=== PATIENT | female | born 1960 | race Caucasian/White ===

== ENCOUNTER 2018-09-13 06:50 | Day surgery (SDC) | payer BC ==
[~2018-09-13 06:50] MED LIST: Acetaminophen TAB* 325 MG PO PRN; Buffered Lidocaine 0.9% SYRIN* 5 ML/SYR SYRINGE INTRADERM ONE
[2018-09-13] MEDS ORDERED: Midazolam* 1 MG/ML 2 ML VIAL (2 MG) ONE (07:18)
[2018-09-13] MEDS ORDERED: fentaNYL* 50 MCG/ML 2 ML VIAL (100 MCG VIAL) ONE (07:18)
[2018-09-13] MEDS ORDERED: Lidocaine 2% EPI 1:200000 MPF*10-20 ML VIAL ONE (08:39)
[2018-09-13] MEDS ORDERED: Neomycin/Polymy/Dex OPTH.SUSP* MAXITROL 0.1% 5 ML ONE (08:39)
[2018-09-13] MEDS ORDERED: Cyclopentolate 1% OPTH.SOL* 2 ML BTL ONE (08:39)
[2018-09-13] MEDS ORDERED: Povidone Iodine 5% OPTH* 30 ML BTL ONE (08:39)
[2018-09-13] MEDS ORDERED: Lidocaine 1%* 5 ML VIAL ONE (08:39)
[2018-09-13] MEDS ORDERED: acetaZOLAMIDE TAB* 250 MG ONE (08:39)
[2018-09-13] MEDS ORDERED: Proparacaine 0.5% OPHTH.SOL* 15 ML BTL ONE (08:39)
[2018-09-13] MEDS ORDERED: Ketorolac 0.5% OPHTH (NF) 0.5 % 5 ML BTL ONE (08:39)
[2018-09-13 09:16] VITALS: BP 107/68
--- NOTE | 2018-09-13 15:56 | OP ---
OPERATIVE NOTE: DATE OF OPERATION: 09/13/18 DATE OF : 56 SURGEON: Hi Machuca MD PREOPERATIVE DIAGNOSIS: Cataract, right eye. POSTOPERATIVE DIAGNOSIS: Cataract, right eye. OPERATIVE PROCEDURE: Extracapsular cataract extraction with intraocular lens implant, right eye. PROCEDURE: The patient was brought to the operating room after being given 1/2% Alcaine with epineph rine drops in the preoperative area. The eye was prepped and draped in the usual sterile fashion. S terile drape and eyelid speculum were placed. Again, topical 1/2% Alcaine with epinephrine was given . A paracentesis incision was made at the 9 o'clock position with the No.75 blade. Clear cornea inc ision 2.2 x 2.2-mm was created at the 12 o'clock position starting at the anterior limbus using the 2 .2-mm keratome. The anterior chamber was irrigated with 0.4 mL of 1% non-preservative intracameral l idocaine and filled with DisCoVisc. A capsulorrhexis was completed using the cystotome and the Utrat a forceps. Hydrodissection was performed with balanced salt solution. The lens nucleus was removed w ith the Phacoemulsification handpiece without incident. Cortex was removed with the irrigation-aspir ation handpiece. The capsular bag was re-inflated using DisCoVisc and an [id number] implant was inser coleen with the shooter. The irrigation-aspiration handpiece was used to remove all residual DisCoVisc. The eye was refilled with balanced salt solution and the wound checked and found to be watertight. Topical Maxitrol drops were given. [id number]/[facility] #: [id number]
== END 2018-09-13 09:17 | disposition home or self-care (01) ==
LOC: OREAST 06:50
PROVIDERS: ATTEND Specialist
DX: H25.811 Combined forms of age-related cataract, right eye (principal); H04.122 Dry eye syndrome of left lacrimal gland; H43.812 Vitreous degeneration, left eye; R00.2 Palpitations
CPT/HCPCS: A9270-GY; J2250; J3010; V2632